=== PATIENT | male | born 1960 | race Caucasian/White ===

== ENCOUNTER 2019-07-02 23:35 | Inpatient (IN) | payer OTHER, SELFPAY ==
[2019-07-03] MEDS ORDERED: DOPamine 400 MG/D5W 250 ML 250 ML ONE (00:16)
[2019-07-03] MEDS ORDERED: Sodium Bicarbonate 2.5 MEQ/5 ML VIAL ONE ×3 (00:25→01:02)
[2019-07-03] MEDS ORDERED: EPINEPHrine 1 MG/ML AMP ONE (00:25)
[2019-07-03] MEDS ORDERED: Aggrastat 12.5 MG/250 ML 250 ML ONE (00:57)
[2019-07-03] MEDS ORDERED: Sodium Chloride 0.9% 1,000 ML IV SCH (01:15)
[2019-07-03] MEDS ORDERED: Norepinephrine 16 MG in Dextrose 5% in Water 234 ML IVPB SCH (01:15)
[2019-07-03] MEDS ORDERED: Aggrastat 12.5 MG/250 ML 250 ML IVPB SCH (01:15)
--- NOTE | 2019-07-03 02:12 | HP ---
CHIEF COMPLAINT: Cardiac arrest with inferior ST-elevation GA and complete heart block. HISTORY OF PRESENT ILLNESS: Mr. Carrillo is a 59-year-old white gentleman who was on the drive through in [place] in some store, and he suddenly clutched his chest and collapsed. I do not have much information of how he made it to the hospital. However, I received a phone call at around 10 p.m. that he had been coded for about 45 minutes at that time. When they finally were able to regain perfusable pulse. They manage to do an EKG, and it showed inferior ST elevations with reciprocal changes. He actually continued to be coded for total about an hour and a half, eventually was able to be transferred over. He actually coded again in the ambulance on the way over. He arrived on both epinephrine and norepinephrine drips. He was stable with a heart rate in the 40s and a blood pressure of 80s/60s, so he was brought to the catheterization lab. He was noted that he was in complete heart block, so I inserted a temporary pacemaker and put him on a heart rate of 90 beats per minute, actually this made his oxygen saturations go from the 70s up to the upper 80s, and it made his blood pressure go back up to the 90s. He was also continued on his norepinephrine and epinephrine drip as well as started on a dopamine drip. Eventually, he was found to have severe diffuse coronary artery disease, but had a very large dominant left circumflex that was occluded in the midsection, and this one was opened and stented with a bare-metal stent successfully. He has very diffuse disease distally in both LAD and circumflex branches, and he has an occluded RCA that fills from LAD septal collaterals. He is unable to provide any history. He is completely unresponsive on no sedation whatsoever. PAST MEDICAL HISTORY: Report from EMS, hypertension and diabetes. PAST SURGICAL HISTORY: Unknown. SOCIAL HISTORY: Unobtainable as the patient is intubated, unresponsive. REVIEW OF SYSTEMS: Unobtainable as the patient is not sedated and intubated and unresponsive. MEDICATIONS: Unobtainable. ALLERGIES: UNKNOWN. PHYSICAL EXAMINATION: VITAL SIGNS: Blood pressure currently 97/59, pulse 114, saturating 86% of 100% FiO2, and respiratory rate of 24. GENERAL: Intubated, unresponsive, on no sedation. HEENT: Normocephalic, atraumatic. NECK: Supple. LUNGS: Have coarse breath sounds. CARDIOVASCULAR: S1 and S2. No S3 or S4. Tachycardic. ABDOMEN: Soft. EXTREMITIES: No edema. SKIN: Warm and dry. LABORATORY DATA: Laboratory work was reviewed from [facility], showed a white count of 12, hemoglobin of 14, hematocrit of 47, and platelet count of 180. Coags were reviewed. Chemistries were reviewed. Lactic acid was 13.5, anion gap was 27. Troponin was initially at 0.01, and CK-MB of 2.3, so negative. EKG was reviewed. Initial EKG, a junctional rhythm with heart rate in the 40s with inferior ST elevations, reciprocal changes, also lateral ST elevations. ASSESSMENT: 1. Acute inferolateral ST-elevation myocardial infarction. 2. Complete third-degree atrioventricular block. 3. Cardiogenic shock. 4. [id number] cardiac arrest. 5. Severe multivessel coronary artery disease. 6. Status post bare-metal stent to left circumflex dominant vessel. 7. Metabolic and respiratory acidosis. PLAN: 1. Continue anti-platelet therapy. Continue Aggrastat drip for the next 12 hours. Hopefully, we will be able to crush Plavix and put it through his NG tube. 2. Rectal aspirin. 3. High dose statin is able to give through NG tube. 4. Continue pressor support. Try to wean as tolerated. His hemodynamics actually improve significantly after we opened up the artery. 5. He has severe residual disease. His LAD is not amenable to any revascularization given his severe distal disease. His RCA is small and nondominant and has good collateral flow from the septal collaterals. He has several small vessel disease in the distal left circumflex, not amenable to any type of revascularization either. 6. Currently, full code. 7. We will try to contact family members. 8. The patient is severely ill, and would not be unexpected. 9. I suspect high degree of anoxic brain injury given his CPR was about an hour and a half total. 10. We will await neurological recovery. 11. Continue supportive care for now. 12. We will request the help from our colleagues in the Hospitalist Service to help us with management of other conditions. 13. We will also request help from Pulmonary Critical Care for help with his ventilator. 14. 75 minutes critical care time. Job ID: [id number]
[2019-07-03 02:24] VITALS: BMI 34.6
[2019-07-03] MEDS ORDERED: Clopidogrel Bisulfate 300 MG TAB PO SCH (02:30)
[2019-07-03 02:38] LABS: Band 10 % (5-11); Hemoglobin 15.6 g/dL (14.0-18.0); Lymphocytes 6 % (21-51); MDiff Complete? YES; Mean Corpuscular HGB CONC 32.9 g/dL (32.0-36.0); Mean Corpuscular Volume 94.5 fL (78.0-98.0); Mean Platelet Volume 7.8 fL (7.4-10.4); Monocytes 6 % (0-10); Neutrophil 78 % (42-75); Platelet Count 273 thou/uL (130-400); Platelet Morphology Comment Appears Adequate; RBC Distribution Width 12.2 % (11.5-14.5); RBC Morphology Normal; Red Blood Cell (RBC) Count 5.01 mill/uL (4.70-6.10); White Blood Cell (WBC) Count 36.7 thou/uL (4.8-10.8)
[2019-07-03 02:42] LABS: Troponin I 24.688 ng/mL (< 0.028)
[2019-07-03 02:50] LABS: ALT (SGPT) 1132 U/L (8-55); AST (SGOT) 1366 U/L (5-34); Albumin 3.1 g/dL (3.5-5.0); Alkaline Phosphatase 89 U/L (40-110); Anion Gap 25 mmol/L (10-20); BUN (Urea Nitrogen) 19 mg/dL (8.4-25.7); Bilirubin, Total 0.8 mg/dL (0.2-1.2); Calc. Creatinine Clearance 58 mL/min (70-130); Calcium 7.6 mg/dL (7.8-10.44); Carbon Dioxide 12 mmol/L (22-29); Chloride 109 mmol/L (98-107); Estimated GFR-MDRD 32; Globulin 1.9 g/dL (2.4-3.5); Glucose 403 mg/dL (70-105); Potassium 3.5 mmol/L (3.5-5.1); Sodium 142 mmol/L (136-145)
[2019-07-03 03:00] LABS: CKMB 408.4 ng/mL (0-6.6)
[2019-07-03 07:30] LABS: Actual Bicarbonate (HCO3a) 10.2 mEq/L (22-28); Base Excess (BEa) -17.5 mEq/L (-2.0 to +3.0); CO2 Tension 30.6 mmHg (35.0-45.0); Calcium, Ionized 1.09 mmol/L (1.12-1.30); Carboxyhemoglobin (COHb) 0.6 gm% (0.0-3.0); Hemoglobin (Hb) 15.8 g/dL (14.0-18.0); O2 Tension (PaO2) 87.5 mmHg (80.0-100.0); Potassium - ABG Lab 3.36 mmol/L (3.70-5.30)
[2019-07-03 07:46] LABS: Puncture Site LB; pH, Arterial 7.14 (7.35-7.45)
[2019-07-03 08:10] LABS: Troponin I 124.919 ng/mL (< 0.028)
[2019-07-03] MEDS: DOPamine 400 MG/D5W 250 ML 250 ML IVPB SCH ×2 (08:16→15:25)
[2019-07-03] MEDS ORDERED: Clopidogrel Bisulfate 75 MG TAB PO SCH (09:00)
[2019-07-03] MEDS ORDERED: Aspirin 300 MG Suppository PR SCH (09:00)
[2019-07-03] MEDS ORDERED: Sodium Bicarbonate 140 MEQ in Dextrose 5% in Water 1,000 ML IV SCH (09:45)
--- NOTE | 2019-07-03 10:25 | CON ---
DATE OF CONSULTATION: 07/03/2019 This is 75 minutes critical time. REASON FOR CONSULTATION: Acute respiratory failure following prolonged cardiopulmonary arrest. HISTORY OF PRESENT ILLNESS: This is a 59-year-old male from out of town, who was at a drive-through in [place] when he arrested. I was told he has received about 90 minutes of CPR. He went to the [facility] for intervention and was found to have diffuse disease with a dominant left circumflex that was occluded at the mid section that was opened with a bare metal stent. Unfortunately, he has been neurologically unresponsive. He is currently not receiving any sedation. PAST MEDICAL HISTORY: Reportedly remarkable for hypertension and diabetes. PAST SURGICAL HISTORY: Not known. SOCIAL HISTORY: Not known. FAMILY HISTORY: Not known. REVIEW OF SYSTEMS: Cannot be obtained. MEDICATIONS: Unknown. ALLERGIES: UNKNOWN. PHYSICAL EXAMINATION: VITAL SIGNS: Temperature 96.2, pulse 124, blood pressure 101/60, and O2 saturation 97%. He is currently on Aggrastat, dopamine, epinephrine, norepinephrine, and sodium chloride. He is receiving absolutely no sedation. NEUROLOGIC: His pupils are 5 mm and fixed. He has no oculocephalic reflex. No gag. No spontaneous respirations. No withdraw to pain. No reflexes that I can detect. HEENT: Otherwise, unremarkable. NECK: No JVD. LUNGS: Coarse breath sounds. CARDIAC: S1 and S2. Regular. ABDOMEN: Soft and obese. EXTREMITIES: No edema. IMAGING STUDIES: His x-ray shows mediastinal fullness with ET tube approximately 5 cm above the liam. He has atelectasis in his right mid lung. LABORATORY DATA: ABG; pH 7.14, pCO2 of 30, pO2 of 87 on SIMV rate 24, tidal volume 500, PEEP 5, pressure support 10, FiO2 100%. White blood count 36.7, hematocrit 47.3, and platelet count 273 with 78% neutrophils and 10% bands. Sodium 142, potassium 3.5, chloride 109, CO2 of 12, BUN 19, creatinine 2.2, and glucose 403. AST 1366 and ALT 1132. Troponin 124. ASSESSMENT: 1. Myocardial infarction. 2. Severe anoxic brain injury with probable brain . 3. Shock liver. 4. Acute renal insufficiency. 5. Metabolic acidosis. 6. Acute respiratory failure, requiring mechanical ventilation. PLAN: 1. I think the patient is probably brain . We will go ahead and warm up to about 97 Fahrenheit and do a cerebral perfusion scan. If the perfusion scan shows no brain flow, then he will be pronounced. 2. I have put him on a bicarb drip for his metabolic acidosis. 3. Continue supportive care with vasopressors. 4. Continue mechanical ventilation. 5. We would notify [facility] to see if the patient would be a candidate for organ donation should he be pronounced brain . Job ID: [id number]
--- NOTE | 2019-07-03 11:07 | RAD ---
PORTABLE CHEST: Date: 07/03/2019 HISTORY: Endotracheal tube placement. FINDINGS: Heart size within normal limits. Film is of less than optimal inspiration. Pulmonary vessels are slig htly engorged. There are atelectatic changes in the lung bases. Endotracheal tube is at the level of the thoracic inlet. NG tube is below the hemidiaphragm. IMPRESSION: 1. Endotracheal tube. Tip of the tube is approximately 5.1 cm from the liam. 2. Bibasilar atelectasis. POS: [facility]
--- NOTE | 2019-07-03 12:12 | PDOC.EVN ---
Event Note - Event Note Event Note: H & P dictated tried to reach [facility] facily member, Ms Smith at [phone]--number invalid.
--- NOTE | 2019-07-03 12:50 | NM ---
Exam: NUCLEAR MEDICINE BRAIN STUDY: HISTORY: Evaluate for brain . COMPARISON: None. TECHNIQUE: Patient administered 28.20 mCi of technetium 99m Ceretec intravenously. Imaging was perfor med for 48 minutes. FINDINGS: There is uptake in the soft tissues and vessels. There does not appear to be uptake in the cerebrum. There is associated photopenia. IMPRESSION: Scintigraphic findings suggesting brain given photopenia in the region of the cerebrum. Transcribed Date/Time: 07/03/2019 1:11 PM
[2019-07-03 13:09] VITALS: TEMP 98.6
--- NOTE | 2019-07-03 13:30 | HP ---
CHIEF COMPLAINT: Outside cardiac arrest. HISTORY OF PRESENT ILLNESS: A 59-year-old male with hypertension and diabetes , had a cardiac arrest outside. He was driving through [place], he was collapsed at the store. Cardiology was notified at that time. Before he brought in here, it appears that he coded for about 45 minutes. Also in the EMS, it seems he coded. He was brought in with epinephrine and norepinephrine drips. Temporary pacer placed, which improved his blood pressure as well as his pulse. Emergent catheterization showed diffuse coronary artery disease and large dominant left circumflex. Bare metal stent placed to the circumflex. Diffuse disease distally in both the LAD as well as circumflex branches. During my exam, he is in the ICU. He is on vent. His pupils are significantly dilated. He possibly has anoxic brain injury. We are going to get a V/Q scan of the brain. PAST MEDICAL HISTORY: Based on review of the chart, he has a diabetes and hypertension. SOCIAL HISTORY: Unknown. REVIEW OF SYSTEMS: Not obtainable. FAMILY HISTORY: Unknown. PHYSICAL EXAMINATION: GENERAL: Currently, he is on the vent, but it appears he is brain . HEENT: Pupils are 3 mm dilated on both sides. The patient is on dopamine drip. LUNGS: Clear to auscultation. He is supported by the vent. ABDOMEN: Did not notice any rash over the abdomen. He did have some bowel sounds. EXTREMITIES: I did not see any skin mottling. However, he has significant hematemesis both via the NG tube as well as he has blood in the urine as well. LABORATORY DATA: Significant for white count of 36.7, his creatinine is 2.16. His troponin was 124.9. CK-MB 408. IMPRESSION AND PLAN: This is unfortunately a 59-year-old male with a history of hypertension, diabetes had outside hospital cardiac arrest. Emergently, he had a catheterization, which showed occlusion on the circumflex and had a bare metal stent placed. 1. Diffuse coronary artery disease. 2. Cardiac arrest. 3. Status post third-degree AV block. 4. Inferior ST segment elevation myocardial infarction. 5. Anoxic brain injury. His prognosis is quite guarded. His demise is imminent. We are going to rule out any brain activities with V/Q scan. I tried to contact the Family based on the contact given in the system. Job ID: [id number] [facility]
[2019-07-03 14:17] VITALS: BP 114/71
[2019-07-03 14:27] LABS: Actual Bicarbonate (HCO3a) 14.6 mEq/L (22-28); Base Excess (BEa) -12.2 mEq/L (-2.0 to +3.0); CO2 Tension 36.4 mmHg (35.0-45.0); Calcium, Ionized 1.06 mmol/L (1.12-1.30); Carboxyhemoglobin (COHb) 0.7 gm% (0.0-3.0); Hemoglobin (Hb) 15.3 g/dL (14.0-18.0); O2 Tension (PaO2) 69.7 mmHg (80.0-100.0)
[2019-07-03 14:28] LABS: pH, Arterial 7.22 (7.35-7.45)
[2019-07-03 14:29] LABS: Puncture Site LB
[2019-07-03] MEDS ORDERED: Atorvastatin Calcium 40 MG TAB PO SCH (21:00)
--- NOTE | 2019-07-04 17:20 | DIS ---
DATE OF ADMISSION: 07/02/2019 DATE OF DISCHARGE: 07/03/2019 DISCHARGE DIAGNOSES: Status post cardiac arrest at outside, third-degree AV block, diffuse coronary artery disease, inferior ST elevation myocardial infarction, anoxic brain injury. DISCHARGE MEDICATIONS: None. HOSPITAL COURSE: A 59-year-old male with a history of hypertension, diabetes, had a cardiac arrest at outside. He went through emergent pacemaker placement for third-degree AV block and a bare metal stent placement at the circumflex . Since he had a code for roughly an [id number] in total, he had significant anoxic brain injury. V/Q scan confirmed there is no flow. The family contacted. He has lived by two sons. He had a demise at 2 p.m. on 02 July. Primary cause of his demise is cardiac arrest. Secondary cause, diffuse coronary artery disease, inferior wall ST-elevation GA. Job ID: [id number] [facility]
== END 2019-07-03 19:50 | disposition expired | DRG 248 ==
LOC: ERS 23:54 → CDU 23:55 → CCL 07-03 00:03 → CCU 07-03 01:35 → UNDOADMIN 07-03 01:35 → UNDODISIN 07-03 14:00
PROVIDERS: ADMIT Internal Medicine Cardiovascular Disease; ATTEND Internal Medicine Cardiovascular Disease
PROC: 4A023N7 Measurement of Cardiac Sampling and Pressure, Left Heart, Percutaneous Approach (ICD-10-PCS; principal; 2019-07-03)
PROC: 02703DZ Dilation of Coronary Artery, One Artery with Intraluminal Device, Percutaneous Approach (ICD-10-PCS; 2019-07-03)
PROC: 02C03ZZ Extirpation of Matter from Coronary Artery, One Artery, Percutaneous Approach (ICD-10-PCS; 2019-07-03)
PROC: B2111ZZ Fluoroscopy of Multiple Coronary Arteries using Low Osmolar Contrast (ICD-10-PCS; 2019-07-03)
PROC: B2151ZZ Fluoroscopy of Left Heart using Low Osmolar Contrast (ICD-10-PCS; 2019-07-03)
PROC: 3E033XZ Introduction of Vasopressor into Peripheral Vein, Percutaneous Approach (ICD-10-PCS; 2019-07-03)
PROC: 0BH17EZ Insertion of Endotracheal Airway into Trachea, Via Natural or Artificial Opening (ICD-10-PCS; 2019-07-03)
PROC: 5A1935Z Respiratory Ventilation, Less than 24 Consecutive Hours (ICD-10-PCS; 2019-07-03)
DX: I21.19 ST elevation (STEMI) myocardial infarction involving other coronary artery of inferior wall (principal); K72.00 Acute and subacute hepatic failure without coma; J96.00 Acute respiratory failure, unspecified whether with hypoxia or hypercapnia; I44.2 Atrioventricular block, complete; G93.1 Anoxic brain damage, not elsewhere classified; E87.2 Acidosis; J98.11 Atelectasis; I25.10 Atherosclerotic heart disease of native coronary artery without angina pectoris; I10 Essential (primary) hypertension; E11.9 Type 2 diabetes mellitus without complications; N28.9 Disorder of kidney and ureter, unspecified; I46.9 Cardiac arrest, cause unspecified
CPT/HCPCS: 33210; 36415; 37212; 71045; 76942; 78610; 80053; 82553; 82805; 83880; 84443; 84484; 85025; 85347; 92928; 92973; 93005; 93306; 93458; 94002; A9521; C1725; C1757; C1760; C1769; C1876; J0171; J1265; J1644; J3246; J7050; J7070

== ENCOUNTER 2019-07-03 18:00 | Inpatient (IN) | payer OTHER ==
--- NOTE | 2019-07-03 17:10 | RAD ---
EXAM: Single view of the chest HISTORY: Organ donation and a brain patient COMPARISON: 07/03/2019 FINDINGS: Single view of the chest shows a normal sized cardiomediastinal silhouette. The endotrache al tube and NG tube are unchanged in position. There is a stable small amount of fluid in the right minor fissure. There may also be a small left pleural effusion. The bones are unremarkable. IMPRESSION: Stable exam
[2019-07-03 17:35] LABS: INR-International Normal Ratio 1.3; PTT 33.2 SEC (22.9-36.1)
[2019-07-03 17:37] LABS: #Lymphocytes 1.2 thou/uL (1.20-3.40); #Monocytes 1.8 thou/uL (0.11-0.59); #Neutrophils 19.2 thou/uL (1.40-6.50); %Eosinophils 0.2 % (0.0-10.0); %Lymphocytes 5.5 % (21.0-51.0); %Monocytes 7.9 % (0.0-10.0); %Neutrophils 86.4 % (42.0-75.0); Hemoglobin 15.2 g/dL (14.0-18.0); Mean Corpuscular HGB CONC 33.5 g/dL (32.0-36.0); Mean Corpuscular Hemoglobin 31.1 pg (27.0-31.0); Mean Corpuscular Volume 92.9 fL (78.0-98.0); Mean Platelet Volume 8.2 fL (7.4-10.4); Platelet Count 263 thou/uL (130-400); RBC Distribution Width 12.3 % (11.5-14.5); Red Blood Cell (RBC) Count 4.87 mill/uL (4.70-6.10); White Blood Cell (WBC) Count 22.2 thou/uL (4.8-10.8)
[2019-07-03] MEDS: Piperacillin/Tazobactam 3.375 GM in Sodium Chloride 0.9% 100 ML IVPB SCH (17:53)
[~2019-07-03 18:00] MED LIST: Albuterol Sulfate 2.5 mg/3 ml Neb NEB PRN; Levothyroxine Sodium 400 MCG in Sodium Chloride 0.9% 100 ML IVPB SCH; Phytonadione 10 MG in Sodium Chloride 0.9% 50 ML IVPB SCH; Sodium Bicarbonate 140 MEQ in Dextrose 5% in Water 1,000 ML IV SCH; Sodium Chloride 0.45% 1,000 ML IV SCH; methylPREDNISolone Sod Succ 2 GM in Sodium Chloride 0.9% 100 ML IVPB SCH
[2019-07-03 18:02] LABS: ALT (SGPT) 862 U/L (8-55); AST (SGOT) 1185 U/L (5-34); Albumin 2.7 g/dL (3.5-5.0); Alcohol Less than 10 mg/dL (Less than 10); Alkaline Phosphatase 58 U/L (40-110); Anion Gap 17 mmol/L (10-20); BUN (Urea Nitrogen) 30 mg/dL (8.4-25.7); Bilirubin, Direct 0.3 mg/dL (0.1-0.3); Bilirubin, Total 0.6 mg/dL (0.2-1.2); Calc. Creatinine Clearance 0 mL/min (70-130); Calcium 6.9 mg/dL (7.8-10.44); Carbon Dioxide 15 mmol/L (22-29); Chloride 102 mmol/L (98-107); Estimated GFR-MDRD 17; Globulin 1.7 g/dL (2.4-3.5); Glucose 731 mg/dL (70-105); Magnesium 1.2 mg/dL (1.6-2.6); Phosphorus 3.3 mg/dL (2.3-4.7); Potassium 3.1 mmol/L (3.5-5.1); Protein, Total 4.4 g/dL (6.0-8.3); Sodium 131 mmol/L (136-145)
[2019-07-03] MEDS ORDERED: Albuterol Sulfate 2.5 mg/3 ml Neb NEB SCH (18:30)
[2019-07-03] MEDS ORDERED: Norepinephrine 8 MG/0.9% NS 250 ML ONE (18:33)
[2019-07-03] MEDS ORDERED: Insulin Regular 100 units/100 ml in NS IVPB SCH (19:45)
[2019-07-03 20:03] LABS: Actual Bicarbonate (HCO3a) 16.9 mEq/L (22-28); Base Excess (BEa) -7.8 mEq/L (-2.0 to +3.0); CO2 Tension 32.9 mmHg (35.0-45.0); Calcium, Ionized 0.97 mmol/L (1.12-1.30); Carboxyhemoglobin (COHb) 0.4 gm% (0.0-3.0); Hemoglobin (Hb) 15.4 g/dL (14.0-18.0); Potassium - ABG Lab 3.66 mmol/L (3.70-5.30); pH, Arterial 7.33 (7.35-7.45)
[2019-07-03 20:06] LABS: O2 Tension (PaO2) 48.5 mmHg (80.0-100.0); Puncture Site ART LINE
[2019-07-03 20:07] LABS: ALV-art Gradient 623.375 (0-20)
[2019-07-03] MEDS ORDERED: Albuterol Sulfate 2.5 mg/3 ml Neb NEB PRN (20:14)
[2019-07-03] MEDS ORDERED: Sodium Bicarbonate 140 MEQ in Dextrose 5% in Water 1,000 ML IV SCH (20:15)
[2019-07-03] MEDS ORDERED: Norepinephrine 16 MG in Dextrose 5% in Water 234 ML IVPB PRN (20:25)
[2019-07-03] MEDS ORDERED: EPINEPHrine 2 MG, Admixture Fee 1 EACH in Dextrose 5% in Water 250 ML IV SCH (20:30)
[2019-07-03] MEDS: Insulin Regular 100 units/100 ml in NS IVPB SCH (20:48)
[2019-07-03 21:00] LABS: Bilirubin Negative (Negative); Blood, Urine 2+ (Negative); Clarity Turbid (Clear); Glucose, Urine (Dipstick) Greater than 1000 mg/dL (Negative); Leukocyte 75 Leu/uL (Negative); Nitrite Negative (Negative); Protein, Urine (Dipstick) 20 mg/dL (Neg-Trace); Squamous Epithelial 0-3 HPF (0-3); Urobilinogen Normal mg/dL (Less than 2); WBC/HPF 21-50 HPF (0-3)
[2019-07-03] MEDS ORDERED: Calcium Gluconate 9.2 MEQ in Sodium Chloride 0.9% 100 ML IVPB SCH (21:00)
[2019-07-03] MEDS ORDERED: Magnesium Sulfate 4 GM in Sodium Chloride 0.9% 250 ML 250 ML IVPB SCH (21:00)
[2019-07-03] MEDS ORDERED: Phytonadione 10 MG in Sodium Chloride 0.9% 50 ML IVPB SCH (21:00)
[2019-07-03] MEDS: Potassium Chloride 20 MEQ in Premix Bag 1 BAG IVPB SCH ×2 (21:01→22:07)
[2019-07-03 21:11] LABS: Bacteria/HPF 1+ HPF (None Seen); Renal Epithelial 0-3 HPF (None Seen); Transitional Epithelial 0-3 HPF (None Seen)
[2019-07-03 21:13] LABS: Urine Culture Reflex Yes Yes
[2019-07-03 21:32] LABS: Actual Bicarbonate (HCO3a) 15.8 mEq/L (22-28); Base Excess (BEa) -8.8 mEq/L (-2.0 to +3.0); CO2 Tension 30.9 mmHg (35.0-45.0); Calcium, Ionized 1.07 mmol/L (1.12-1.30); Carboxyhemoglobin (COHb) 0.1 gm% (0.0-3.0); O2 Tension (PaO2) 73.7 mmHg (80.0-100.0); Potassium - ABG Lab 3.84 mmol/L (3.70-5.30); pH, Arterial 7.33 (7.35-7.45)
[2019-07-03 21:33] LABS: Puncture Site ART LINE
[2019-07-03 21:34] LABS: ALV-art Gradient 600.675 (0-20)
[2019-07-03 21:37] VITALS: TEMP 97.5
[2019-07-03] MEDS: Sodium Chloride 0.45% 1,000 ML IV SCH (21:49)
[2019-07-03] MEDS: Albuterol Sulfate 2.5 mg/3 ml Neb NEB SCH (21:51)
[2019-07-03] MEDS ORDERED: Albumin 25% 25 GM/100 ML BOT IVPB SCH (23:30)
[2019-07-03] MEDS ORDERED: Potassium Chloride 40 MEQ in Premix Bag 1 BAG IVPB SCH (23:30)
[2019-07-04] MEDS: Insulin Regular 100 units/100 ml in NS IVPB SCH ×9 (00:32→21:35)
[2019-07-04 01:00] LABS: #Lymphocytes 0.6 thou/uL (1.20-3.40); #Monocytes 0.4 thou/uL (0.11-0.59); #Neutrophils 18.3 thou/uL (1.40-6.50); %Basophils 0.1 % (0.0-1.0); %Eosinophils 0.1 % (0.0-10.0); %Lymphocytes 3.3 % (21.0-51.0); %Monocytes 1.9 % (0.0-10.0); %Neutrophils 94.6 % (42.0-75.0); Hemoglobin 13.8 g/dL (14.0-18.0); Mean Corpuscular HGB CONC 34.5 g/dL (32.0-36.0); Mean Corpuscular Hemoglobin 31.2 pg (27.0-31.0); Mean Corpuscular Volume 90.3 fL (78.0-98.0); Mean Platelet Volume 7.9 fL (7.4-10.4); Platelet Count 201 thou/uL (130-400); Red Blood Cell (RBC) Count 4.42 mill/uL (4.70-6.10); White Blood Cell (WBC) Count 19.3 thou/uL (4.8-10.8)
[2019-07-04 01:07] LABS: INR-International Normal Ratio 1.3; Prothrombin Time 16.6 SEC (12.0-14.7)
[2019-07-04 01:08] LABS: PTT 33.2 SEC (22.9-36.1)
[2019-07-04] MEDS: Piperacillin/Tazobactam 3.375 GM in Sodium Chloride 0.9% 100 ML IVPB SCH ×6 (01:17→23:58)
[2019-07-04 01:21] LABS: ALT (SGPT) 643 U/L (8-55); AST (SGOT) 471 U/L (5-34); Albumin 3.6 g/dL (3.5-5.0); Alkaline Phosphatase 45 U/L (40-110); Anion Gap 20 mmol/L (10-20); BUN (Urea Nitrogen) 34 mg/dL (8.4-25.7); Bilirubin, Direct 0.5 mg/dL (0.1-0.3); Bilirubin, Total 0.8 mg/dL (0.2-1.2); Calc. Creatinine Clearance 29 mL/min (70-130); Calcium 7.6 mg/dL (7.8-10.44); Carbon Dioxide 16 mmol/L (22-29); Chloride 101 mmol/L (98-107); Estimated GFR-MDRD 14; Globulin 1.5 g/dL (2.4-3.5); Magnesium 2.2 mg/dL (1.6-2.6); Phosphorus 3.8 mg/dL (2.3-4.7); Potassium 3.7 mmol/L (3.5-5.1); Protein, Total 5.1 g/dL (6.0-8.3); Sodium 133 mmol/L (136-145)
[2019-07-04 01:33] LABS: Glucose 644 mg/dL (70-105)
[2019-07-04 02:14] LABS: Base Excess (BEa) -9.7 mEq/L (-2.0 to +3.0); Calcium, Ionized 1.02 mmol/L (1.12-1.30); Carboxyhemoglobin (COHb) 0.3 gm% (0.0-3.0); Hemoglobin (Hb) 12.1 g/dL (14.0-18.0); Potassium - ABG Lab 3.84 mmol/L (3.70-5.30)
[2019-07-04 02:19] LABS: pH, Arterial 7.25 (7.35-7.45)
[2019-07-04 02:20] LABS: Puncture Site ART LINE
[2019-07-04] MEDS: Albuterol Sulfate 2.5 mg/3 ml Neb NEB SCH ×6 (02:38→22:14)
[2019-07-04] MEDS: DOPamine 400 MG/D5W 250 ML 250 ML IVPB PRN ×2 (03:13→23:08)
[2019-07-04] MEDS: Levothyroxine Sodium 400 MCG in Sodium Chloride 0.9% 100 ML IVPB SCH ×4 (03:25→20:09)
[2019-07-04 03:45] LABS: Actual Bicarbonate (HCO3a) 18.3 mEq/L (22-28); Base Excess (BEa) -8.3 mEq/L (-2.0 to +3.0); CO2 Tension 41.5 mmHg (35.0-45.0); Calcium, Ionized 1.05 mmol/L (1.12-1.30); Carboxyhemoglobin (COHb) 0.3 gm% (0.0-3.0); Hemoglobin (Hb) 12.6 g/dL (14.0-18.0); O2 Tension (PaO2) 112.1 mmHg (80.0-100.0); Potassium - ABG Lab 3.79 mmol/L (3.70-5.30); pH, Arterial 7.26 (7.35-7.45)
[2019-07-04 03:48] LABS: ALV-art Gradient 549.025 (0-20); Puncture Site ART LINE
[2019-07-04 05:54] LABS: #Lymphocytes 0.9 thou/uL (1.20-3.40); #Monocytes 0.4 thou/uL (0.11-0.59); #Neutrophils 17.2 thou/uL (1.40-6.50); %Basophils 0.1 % (0.0-1.0); %Eosinophils 0.1 % (0.0-10.0); %Lymphocytes 4.8 % (21.0-51.0); %Neutrophils 93.1 % (42.0-75.0); Hemoglobin 12.2 g/dL (14.0-18.0); Mean Corpuscular HGB CONC 34.5 g/dL (32.0-36.0); Platelet Count 159 thou/uL (130-400); Red Blood Cell (RBC) Count 3.92 mill/uL (4.70-6.10); White Blood Cell (WBC) Count 18.4 thou/uL (4.8-10.8)
[2019-07-04 06:18] LABS: ALT (SGPT) 463 U/L (8-55); AST (SGOT) 283 U/L (5-34); Albumin 3.9 g/dL (3.5-5.0); Alkaline Phosphatase 36 U/L (40-110); Anion Gap 18 mmol/L (10-20); BUN (Urea Nitrogen) 35 mg/dL (8.4-25.7); Bilirubin, Direct 0.6 mg/dL (0.1-0.3); Calc. Creatinine Clearance 28 mL/min (70-130); Calcium 7.6 mg/dL (7.8-10.44); Carbon Dioxide 19 mmol/L (22-29); Chloride 102 mmol/L (98-107); Estimated GFR-MDRD 13; Globulin 1.3 g/dL (2.4-3.5); Glucose 434 mg/dL (70-105); Magnesium 1.8 mg/dL (1.6-2.6); Phosphorus 2.7 mg/dL (2.3-4.7); Potassium 3.6 mmol/L (3.5-5.1); Protein, Total 5.2 g/dL (6.0-8.3); Sodium 135 mmol/L (136-145)
[2019-07-04 06:20] LABS: Bilirubin Negative (Negative); Blood, Urine 2+ (Negative); Clarity Turbid (Clear); Glucose, Urine (Dipstick) 500 mg/dL (Negative); Leukocyte Negative Leu/uL (Negative); Nitrite Negative (Negative); Protein, Urine (Dipstick) 30 mg/dL (Neg-Trace); RBC/HPF Greater than 50 HPF (0-3); Squamous Epithelial 0-3 HPF (0-3); Transitional Epithelial 0-3 HPF (None Seen); Urobilinogen Normal mg/dL (Less than 2)
[2019-07-04 06:28] LABS: Bacteria/HPF 1+ HPF (None Seen)
[2019-07-04] MEDS: Sodium Chloride 0.45% 1,000 ML IV SCH ×2 (06:30→16:50)
[2019-07-04] MEDS ORDERED: Potassium Chloride 40 MEQ in Sodium Chloride 0.9% 250 ML 250 ML IVPB SCH (07:45)
[2019-07-04] MEDS ORDERED: Sodium Chloride 0.9% 1,000 ML IV SCH (07:45)
--- NOTE | 2019-07-04 07:47 | RAD ---
EXAM: CHEST ONE VIEW HISTORY: [facility] patient COMPARISON: 07/03/2019 at 1701 hours FINDINGS: Endotracheal tube and nasogastric tubes remain in place. Cardiac silhouette and pulmonary vasculature are within normal limits. Pleural and parenchymal changes are again seen at the left lung base which may be related to left pleural effusion and atelectasis. Superimposed infiltrate cannot be enti rely excluded. There is atelectasis present in the right midlung zone. The atelectasis and small amount of fluid in the region of the minor fissure on the right has improved. No other interval yung e. IMPRESSION: 1. Stable pleural parenchymal changes left lung base which may represent left pleural effusion and at electasis. Superimposed infiltrate is not entirely excluded. 2. Atelectasis right midlung zone. Atelectasis and fluid in the minor fissure on the right has improv ed.
--- NOTE | 2019-07-04 08:33 | RAD ---
CHEST 1 VIEW: HISTORY: STA patient. COMPARISON: Radiograph of prior day. FINDINGS: The patient is intubated with endotracheal tube tip below the clavicles in good position. Enteric tu be tip below the diaphragm but out of the field of view. Small pleural effusions. Mild left lower lobe atelectatic changes. IMPRESSION: Similar examination of the chest from the prior exam. POS: [facility]
--- NOTE | 2019-07-04 09:50 | CT ---
CT CHEST AND ABDOMEN AND PELVIS WITHOUT CONTRAST: INDICATION: Evaluate for possible organ harvest. CT CHEST: Small bilateral pleural effusions. Moderately dense bibasilar consolidation/atelectasis. Mediastinu m unremarkable. Review of the osseous structures reveals a focal sclerotic lesion in the T2 vertebra to the left of m idline measuring 1.5 cm. No other osseous lesion identified. Degenerative osteophytes from the thor acic spine are noted. IMPRESSION: 1. Bilateral pleural effusions with dense bibasilar posterior consolidation and atelectasis. 2. A focal sclerotic lesion in the T2 vertebra which is indeterminate. This could represent benign bone island. A sclerotic metastatic lesion is not excluded. CT ABDOMEN AND PELVIS: Liver, spleen, and pancreas appear unremarkable. Gallbladder is mildly distended with increased intr aluminal density. No gallstones are seen by CT; however, cholesterol gallstones may not be apparent on CT. No evidence of biliary duct dilatation. NG tube is in place. The stomach and duodenum are unremarkable. Adrenal gland is normal. Review of kidneys reveals a 1.0 cm nonobstructing calculus upper collecting structures of the left ki dney. Both kidneys show symmetric function. Small low-density cystic lesion in the anterior left re nal cortex measures 1.0 cm. Kidneys are otherwise unremarkable. Small bowel loops normal caliber. There is contrast in the colon from prior contrast ingestion. The re is mild mural thickening and surrounding inflammatory change involving the left colon. Aorta is normal caliber. No mass or adenopathy. Mild nonspecific perinephric stranding. A small amount of free fluid in the abdomen and deep pelvis. A Jarrell catheter is in place. Osseous structures unremarkable. IMPRESSION: 1. Mural thickening and surrounding inflammatory fluid and stranding involving the left colon. 2. A small amount of free fluid in the abdomen and pelvis. 3. Distended gallbladder. 4. Nonobstructing calculus upper collecting structures right kidney. POS: C
[2019-07-04] MEDS ORDERED: SODIUM BICARBONATE IV SCH ×2 (11:30→12:15)
[2019-07-04] MEDS ORDERED: SODIUM CHLORIDE 0.9% IV SCH (11:30)
[2019-07-04] MEDS ORDERED: Furosemide 40 MG/4 ML VIAL SLOW IVP SCH (11:45)
[2019-07-04] MEDS ORDERED: SODIUM CHLORIDE 0.45% IV SCH (12:15)
[2019-07-04 12:46] LABS: Actual Bicarbonate (HCO3a) 19.4 mEq/L (22-28); Base Excess (BEa) -6.8 mEq/L (-2.0 to +3.0); Calcium, Ionized 1.06 mmol/L (1.12-1.30); Carboxyhemoglobin (COHb) 0.2 gm% (0.0-3.0); Hemoglobin (Hb) 12.8 g/dL (14.0-18.0); O2 Tension (PaO2) 76.3 mmHg (80.0-100.0); Potassium - ABG Lab 3.45 mmol/L (3.70-5.30); pH, Arterial 7.29 (7.35-7.45)
[2019-07-04 12:50] LABS: Puncture Site LINE
[2019-07-04 13:05] LABS: Lactic Acid 2.6 mmol/L (0.5-2.2)
[2019-07-04 13:10] LABS: ALT (SGPT) 420 U/L (8-55); AST (SGOT) 210 U/L (5-34); Albumin 3.7 g/dL (3.5-5.0); Alkaline Phosphatase 37 U/L (40-110); Anion Gap 16 mmol/L (10-20); BUN (Urea Nitrogen) 36 mg/dL (8.4-25.7); Bilirubin, Total 0.9 mg/dL (0.2-1.2); Calc. Creatinine Clearance 0 mL/min (70-130); Calcium 7.5 mg/dL (7.8-10.44); Carbon Dioxide 19 mmol/L (22-29); Chloride 105 mmol/L (98-107); Estimated GFR-MDRD 13; Globulin 1.3 g/dL (2.4-3.5); Glucose 201 mg/dL (70-105); Potassium 3.5 mmol/L (3.5-5.1); Sodium 136 mmol/L (136-145)
[2019-07-04] MEDS ORDERED: Furosemide 100 MG/10 ML VIAL SLOW IVP SCH ×2 (14:30→17:45)
[2019-07-04 18:08] LABS: Bilirubin Negative (Negative); Blood, Urine 3+ (Negative); Clarity Turbid (Clear); Glucose, Urine (Dipstick) 300 mg/dL (Negative); Leukocyte 25 Leu/uL (Negative); Nitrite Negative (Negative); Protein, Urine (Dipstick) 30 mg/dL (Neg-Trace); RBC/HPF 21-50 HPF (0-3); Squamous Epithelial 0-3 HPF (0-3); Urobilinogen Normal mg/dL (Less than 2)
[2019-07-04 18:16] LABS: Bacteria/HPF Rare-Few HPF (None Seen); Renal Epithelial 0-3 HPF (None Seen); Transitional Epithelial 0-3 HPF (None Seen)
[2019-07-04 18:24] LABS: Actual Bicarbonate (HCO3a) 19.5 mEq/L (22-28); Base Excess (BEa) -5.2 mEq/L (-2.0 to +3.0); CO2 Tension 35.6 mmHg (35.0-45.0); Calcium, Ionized 1.03 mmol/L (1.12-1.30); Carboxyhemoglobin (COHb) 0.1 gm% (0.0-3.0); Hemoglobin (Hb) 12.9 g/dL (14.0-18.0); O2 Tension (PaO2) 72.4 mmHg (80.0-100.0); Potassium - ABG Lab 3.39 mmol/L (3.70-5.30); pH, Arterial 7.36 (7.35-7.45)
[2019-07-04 18:39] LABS: INR-International Normal Ratio 1.4; PTT 30.8 SEC (22.9-36.1)
[2019-07-04 18:46] LABS: Hemoglobin 12.7 g/dL (14.0-18.0); Mean Corpuscular HGB CONC 35.8 g/dL (32.0-36.0); Mean Corpuscular Hemoglobin 31.7 pg (27.0-31.0); Mean Corpuscular Volume 88.7 fL (78.0-98.0); Mean Platelet Volume 7.7 fL (7.4-10.4); Platelet Count 179 thou/uL (130-400); RBC Distribution Width 12.1 % (11.5-14.5); Red Blood Cell (RBC) Count 4.01 mill/uL (4.70-6.10); White Blood Cell (WBC) Count 33.3 thou/uL (4.8-10.8)
[2019-07-04 18:57] LABS: Puncture Site LINE
[2019-07-04 18:58] LABS: ALT (SGPT) 413 U/L (8-55); AST (SGOT) 187 U/L (5-34); Albumin 3.8 g/dL (3.5-5.0); Alkaline Phosphatase 44 U/L (40-110); Anion Gap 17 mmol/L (10-20); BUN (Urea Nitrogen) 38 mg/dL (8.4-25.7); Bilirubin, Total 0.9 mg/dL (0.2-1.2); Calc. Creatinine Clearance 0 mL/min (70-130); Calcium 7.8 mg/dL (7.8-10.44); Carbon Dioxide 21 mmol/L (22-29); Chloride 104 mmol/L (98-107); Estimated GFR-MDRD 12; Gamma GT (GGT) 25 U/L (12-64); Globulin 1.4 g/dL (2.4-3.5); Glucose 108 mg/dL (70-105); Magnesium 1.7 mg/dL (1.6-2.6); Phosphorus 3.3 mg/dL (2.3-4.7); Potassium 3.4 mmol/L (3.5-5.1); Protein, Total 5.2 g/dL (6.0-8.3); Sodium 139 mmol/L (136-145)
[2019-07-04] MEDS ORDERED: Bumetanide 1 MG/4 ML VIAL IVP SCH (19:00)
[2019-07-04 19:15] LABS: Band 32 % (5-11); Lymphocytes 4 % (21-51); MDiff Complete? YES; Metamyelocyte 2 % (0-0); Monocytes 2 % (0-10); Neutrophil 60 % (42-75); Platelet Morphology Comment Appears Adequate; Polychromasia SLIGHT = 2-3 cells (100X) (0-2/hpf)
[2019-07-04 19:18] LABS: Lactic Acid 2.4 mmol/L (0.5-2.2)
[2019-07-04 21:09] LABS: Actual Bicarbonate (HCO3a) 20.4 mEq/L (22-28); Base Excess (BEa) -4.5 mEq/L (-2.0 to +3.0); CO2 Tension 37.3 mmHg (35.0-45.0); Calcium, Ionized 1.02 mmol/L (1.12-1.30); Carboxyhemoglobin (COHb) 0.3 gm% (0.0-3.0); Hemoglobin (Hb) 12.8 g/dL (14.0-18.0); Potassium - ABG Lab 3.39 mmol/L (3.70-5.30); pH, Arterial 7.36 (7.35-7.45)
[2019-07-04 21:27] LABS: Puncture Site LINE
[2019-07-04 21:28] LABS: ALV-art Gradient 586.375 (0-20)
[2019-07-04 22:16] VITALS: BP 137/77
[2019-07-04 23:14] LABS: Band 9 % (5-11); Hemoglobin 12.6 g/dL (14.0-18.0); Hypochromia SLIGHT = 6-15 cells (100X) (0-5/hpf); Lymphocytes 7 % (21-51); MDiff Complete? YES; Mean Corpuscular HGB CONC 35.1 g/dL (32.0-36.0); Mean Corpuscular Hemoglobin 31.2 pg (27.0-31.0); Monocytes 3 % (0-10); Neutrophil 81 % (42-75); Platelet Count 178 thou/uL (130-400); Platelet Morphology Comment Appears Adequate; RBC Distribution Width 12.2 % (11.5-14.5); Red Blood Cell (RBC) Count 4.05 mill/uL (4.70-6.10); White Blood Cell (WBC) Count 33.9 thou/uL (4.8-10.8)
[2019-07-04 23:18] LABS: Lactic Acid 2.4 mmol/L (0.5-2.2)
[2019-07-04 23:22] LABS: ALT (SGPT) 393 U/L (8-55); AST (SGOT) 166 U/L (5-34); Albumin 3.7 g/dL (3.5-5.0); Alkaline Phosphatase 48 U/L (40-110); Anion Gap 18 mmol/L (10-20); BUN (Urea Nitrogen) 41 mg/dL (8.4-25.7); Bilirubin, Total 0.9 mg/dL (0.2-1.2); Calc. Creatinine Clearance 0 mL/min (70-130); Calcium 7.9 mg/dL (7.8-10.44); Carbon Dioxide 21 mmol/L (22-29); Chloride 104 mmol/L (98-107); Estimated GFR-MDRD 11; Gamma GT (GGT) 27 U/L (12-64); Globulin 1.5 g/dL (2.4-3.5); Glucose 92 mg/dL (70-105); Magnesium 1.6 mg/dL (1.6-2.6); Phosphorus 3.8 mg/dL (2.3-4.7); Potassium 3.4 mmol/L (3.5-5.1); Protein, Total 5.2 g/dL (6.0-8.3); Sodium 140 mmol/L (136-145)
[2019-07-04 23:59] LABS: INR-International Normal Ratio 1.4; Prothrombin Time 17.1 SEC (12.0-14.7)
[2019-07-04 23:59] LABS: Bacteria/HPF 1+ HPF (None Seen); Bilirubin Negative (Negative); Blood, Urine 1+ (Negative); Clarity Turbid (Clear); Glucose, Urine (Dipstick) Normal (Negative); Leukocyte 500 Leu/uL (Negative); Nitrite Negative (Negative); Protein, Urine (Dipstick) 10 mg/dL (Neg-Trace); Squamous Epithelial 0-3 HPF (0-3); Urobilinogen Normal mg/dL (Less than 2)
[2019-07-05] MEDS ORDERED: Norepinephrine 8 MG/0.9% NS 250 ML ONE (01:02)
[2019-07-05] MEDS ORDERED: Furosemide 20 MG/2 ML VIAL ONE (01:46)
== END 2019-07-05 03:06 | disposition expired | DRG 951 ==
LOC: SDC/OP 18:00 → CCU 19:49 → CDU 07-04 11:20 → CCU 07-04 12:25
PROVIDERS: ADMIT Internal Medicine Cardiovascular Disease; ATTEND Internal Medicine Cardiovascular Disease
DX: Z52.9 Donor of unspecified organ or tissue (principal)
CPT/HCPCS: 36415; 36416; 71045; 71250; 74177; 80053; 80307; 81001; 82247; 82248; 82805; 82977; 83605; 83735; 84100; 85025; 85610; 85730; 86850; 86900; 86901; 87086; 88331; 94002; 94003; J0171; J0282; J0461; J1265; J1815; J1940; J2543; J3430; J3475; J3480; J3490; J7050; J7070; J7611; P9047